=== PATIENT | female | born 1945 | race Caucasian/White ===

== ENCOUNTER 2016-09-04 14:43 | Inpatient (IN) | payer MEDICARE ==
[2016-09-04 14:55] LABS: ABG Draw Site Right Radial; ALLEN'S TEST PASS; BEb 4.4 (+/- 2); TCO2 29.6 MMOL/L (23-27)
[2016-09-04] MEDS ORDERED: SODIUM CHLORIDE 0.9% 3 ML FLUSH FLUSH PRN (15:07)
[2016-09-04] MEDS ORDERED: NS 1,000 ML IV ONE (15:07)
[2016-09-04 15:25] LABS: AUTOMATED BASOPHIL 0.5 % (0-2); AUTOMATED EOSINOPHIL 0.3 % (0-5); AUTOMATED MONOCYTE 3.5 % (3-10); AUTOMATED NEUTROPHIL 90.7 % (45-76); MPV 9.6 fL (7.4-10.4)
--- NOTE | 2016-09-04 15:25 | EDPRACDOC ---
- History of Present Illness HPI: NOTE SEEN AND EXAMINED. I SPOKE WITH FAMILY THAT LIVES ABOVE HER. [place] YESTERDAY. TODAY NOT ACTING RIGHT. MORE LETHARGIC AND CONFUSED. THOUGHT IT WAS 1975 AND RASHAD WAS PRESIDENT. SHE DID NOT KNOW HER AGE. LABS, TRENDS, AND OLD RECORDS REVIEWED. <WillScottie Trevor - Last Filed: 09/04/16 16:18> - General Information Information Source: Family, Thread Pulling Machine Attendant Mode Of Arrival: Ambulance - History of Present Illness Onset: PATIENT FINANCIAL SERVICES SPECIALIST HPI: FAMILY STATES THAT SHE HAS BEEN MORE CONFUSED THAN NORMAL AND SHAKING ALL OVER. PT DENIES PAIN ANYWHERE, NO N/V/D COUGH CONGESTION OR SOB. FAMILY STATES THAT WHEN THEY CHECKED HER OXYGEN AT HOME IT WAS 77% AND THEY DIDNT THINK HER OXYGEN MACHINE WAS WORKING AT HOME. Shortness of Breath: None Relevant History: Reports: COPD, Heart Failure (CHF) Rhinorrhea: Reports: None Ear Symptoms: Reports: None SOB Worsens with: Reports: Nothing SOB Improves with: Reports: Nothing Associated Signs and symptoms: Reports: Other (AMS) <Janel Youssef - Last Filed: 09/04/16 17:39> - General Information Stated Complaint: AMS, RESP PROBLEMS Time Seen by Provider: 09/04/16 14:48 Home Medications: Home Medications Omeprazole [Prilosec] 40 mg PO QAM 12/02/12 Fenofibrate [Lofibra] 108 mg PO BID 07/30/16 Liraglutide [Victoza 18 mg/3 ml Pen] 1.2 mg SQ DAILY@0800 07/30/16 Albuterol/Ipratropium Neb [Duoneb] 3 ml NEB TID #90 nebu 08/04/16 BuPROPion (BID formulation) [Wellbutrin-Sr] 150 mg PO BID #60 tab.sr.12h Furosemide [Lasix] 20 mg PO DAILY #30 tablet 08/04/16 Glipizide [Glucotrol] 10 mg PO BID(SABINO) #60 tablet 08/04/16 Insulin Detemir [Levemir] 30 units SQ HS #5 pen 08/04/16 Levothyroxine Sodium [Synthroid] 50 mcg PO DAILY #30 tablet 08/04/16 Lorazepam [Ativan] 0.5 mg PO TID PRN #30 tablet 08/04/16 Metoprolol Tartrate [Lopressor] 50 mg PO BID #60 tablet 08/04/16 Nebulizer [Erapid Nebulizer] 1 each MC TID #1 each 08/04/16 Pregabalin [Lyrica] 300 mg PO BID #60 capsule 08/04/16 Probiotic Blend [Angela Q] 1 each PO BID #30 tab 08/04/16 Simvastatin [Zocor] 20 mg PO HS #30 tablet 08/04/16 Albuterol Sulfate [Proair Hfa] 2 puff INH Q4-6H PRN 09/04/16 Diphenoxylate HCl/Atropine [Lomotil Tablet (2.5 mg/0.025 mg)] 1 - 2 tab PO QID PRN 09/04/16 Mirtazapine [Remeron] 15 mg PO HS 09/04/16 Sertraline HCl [Zoloft] 50 mg PO HS 09/04/16 Allergies/Adverse Reactions: Allergies Allergy/AdvReac Type Severity Reaction Status Date / Time No Known Allergies Allergy Verified 09/04/16 16:07 - Treatment Prior to ED Arrival Reported Medications/Treatment PATIENT FINANCIAL SERVICES SPECIALIST Meds/Treatments Given O2 via [facility] Treatment ALS IV No Comment capnography 35%, initial pulse ox. 76% on home oxygen 2l/min, cbg 235 <Scottie Solis - Last Filed: 09/04/16 16:18> ED Past Medical History - History Reviewed Yes Nurses notes reviewed and agree except as marked Travel Outside of [place] in the Last 3 Months?: No Information Unobtainable: Yes Unable to obtain information due to patient condition (AMS) - Patient Medical History Cardiac History: Reports: Hypertension, Congestive Heart Failure, Hypercholesterolemia Respiratory History: Reports: COPD, Pneumonia (REPORTED BY MD) GI/ History: Reports: Gastroesophageal Reflux Musculoskeletal History: Reports: Arthritis, Osteoarthritis Psychological History: Reports: Anxiety. Denies: Depression, Substance Use Disorder Systemic History: Reports: Diabetes, Hypothyroidism. Denies: Cancer Surgical History: Reports: Cholecystectomy, Other (Right great toe amputation) - Family Medical History Reports: Hypertension (father, brother), Cancer (sister - uterine), Cardiac Disorders (father, brother) - Social Medical History Smoking Status: Heavy tobacco smoker (5 or more cigarettes/day or daily pipe/ cigar) Social History: Denies: Substance Use Disorder ETOH: None Substance Abuse: None Lives With: Other Lives In: Home <Janel Youssef - Last Filed: 09/04/16 17:39> EDM Review of Systems - Review of Systems ROS Negative Except as Marked: Yes All systems reviewed and were negative except as marked ROS Unobtainable: Yes Review of systems cannot be obtained due to the patient's medical condition (AMS, FAMILY AT BEDSIDE FOR INFO) Constitutional: No Symptoms Reported. negative: Fever, Chills, Weakness, Fatigue, Loss of Appetite Eyes: No Symptoms Reported. negative: Redness, Blurred Vision, Double Vision, Discharge, Pain, Light Sensitive, Photophobia Ears: No Symptoms Reported. negative: Pain, Hearing Loss, Drainage, Ear Pulling Throat: No Symptoms Reported. negative: Pain, Swelling Nose: No Symptoms Reported. negative: Congestion, Bleeding, Discharge, Injection, Swelling, Deformity, Ecchymosis, Tender, Abrasion, Laceration Mouth: No Symptoms Reported. negative: Pain, Drooling Respiratory: No Symptoms Reported. negative: Barky Cough, Brassy Cough, Cough, Hemoptysis, Shortness of Breath, Wheezing Cardiovascular: No Symptoms Reported. negative: Chest Pain, Palpitations, Syncope, Edema, Orthopnea, PND, Skin Mottling, Cyanosis Gastrointestinal: No Symptoms Reported. negative: Pain, Constipation, Nausea, Vomiting, Diarrhea, Melena, Formula Intolerance Genitourinary: No Symptoms Reported. negative: Dysuria, Hematuria, Frequency, Discharge, Bleeding, Testicular Pain, Neurological: Memory Changes, Changes in Orientation. negative: Dizziness, Gait Difficulty, Headache, Numbness, Seizure, Speech Difficulty, Weakness Musculoskeletal: No Symptoms Reported. negative: Neck, Chestwall, Ribs, Back, Shoulder, Arm, Elbow, Forearm, Wrist, Hand, Pelvis, Hip, Femur, Knee, Leg, Ankle , Foot Integumentary: No Symptoms Reported. negative: Itching, Rash, Bruising, Wound Allergic/Immunologic: No Symptoms Reported. negative: Hives, Itching Hematologic: No Symptoms Reported. negative: Lymphadenopathy, Easy Bruising, Easy Bleeding Endocrine: No Symptoms Reported. negative: Weight Gain, Weight Loss Psychiatric: No Symptoms Reported. negative: Anxiety, Depression, Hallucinations, Insomnia, Suicidal <Janel Youssef - Last Filed: 09/04/16 17:39> - Physical Exam Last recorded Vital Signs: Last Vital Signs Temp 98.9 F 09/04/16 14:45 Pulse 64 09/04/16 16:01 Resp 18 09/04/16 16:01 BP 114/57 L 09/04/16 16:01 Pulse Ox 96 09/04/16 16:01 Oxygen Pulse Oxygen Saturation 96 O2 Device Nasal Cannula Oxygen Flow Rate 2 Fraction of Inspired Oxygen ( FIO2) <Scottie Solis - Last Filed: 09/04/16 16:18> - Physical Exam Constitutional: Alert (Awake), Other (AMS) Oriented to: Unable to Test Last recorded Vital Signs: Oxygen Pulse Oxygen Saturation O2 Device Oxygen Flow Rate Fraction of Inspired Oxygen ( FIO2) - HEENT Head: Normal ( normocephalic) Eye Exam: Normal (PERRL, EOMI, Sclera white) Oropharynx: Normal (Pharynx:Moist without exudate,Gums-no swelling) Tympanic Membrane: Normal ENT EAC: Normal TMJ: Normal Nose: No Symptoms Reported (septum midline) Neck: Normal (FROM, trachea at midline) - Respiratory/Cardiovascular Respiratory: Normal - CTA (BBS clear to auscultation without adventitious sounds ) Cardiovascular: Normal (RRR without murmur, gallop or rub) - GI Auscultation: Normal (NABS) Palpation: Normal (Soft,No rebound or guarding, non distended) Tenderness: Non tender Edgar's Sign: Negative - Bladder: Normal - Musculoskeletal Back: Normal (Non-Tender) Extremities: Normal (Normal tone, Pulses 2+ No cyanosis or edema, FROM) - Integumentary Skin: Normal, Warm, Dry Lymphatics: Normal (no adenopathy) - Neurologic Memory Impaired: Unable to Test Motor Function: Unable to Test Cranial Nerve: Unable to Test Cerebellar: Unable to Test Mood Description: Normal Perception: Normal <Janel Youssef - Last Filed: 09/04/16 17:39> ED SOB MDM - Results Result Diagrams: 09/04/16 15:00 09/04/16 15:00 Results: WBC 7.3 xk/uL (3.8-10.8) 09/04/16 15:00 RBC 4.37 xM/uL (4.20-5.40) 09/04/16 15:00 Hgb 13.0 g/dL (12.0-16.0) 09/04/16 15:00 Hct 39.1 % (36-47) 09/04/16 15:00 MCV 89 fL (81-99) 09/04/16 15:00 MCH 29.7 pg (27-32) 09/04/16 15:00 MCHC 33.3 g/dl (33-36) 09/04/16 15:00 RDW 16.6 % (11.5-14.5) H 09/04/16 15:00 Plt Count 170 xk/uL (130-400) 09/04/16 15:00 MPV 9.6 fL (7.4-10.4) 09/04/16 15:00 Neut % (Auto) 90.7 % (45-76) H 09/04/16 15:00 Lymph % (Auto) 5.0 % (17-44) L 09/04/16 15:00 [place] % (Auto) 3.5 % (3-10) 09/04/16 15:00 Eos % (Auto) 0.3 % (0-5) 09/04/16 15:00 Baso % (Auto) 0.5 % (0-2) 09/04/16 15:00 Absolute Neuts (auto) 6.57 xk/uL (1.7-8.2) 09/04/16 15:00 Absolute Lymphs (auto) 0.37 xk/uL (0.65-4.75) L 09/04/16 15:00 PT 11.4 SEC (9.2-11.2) H 09/04/16 15:00 INR 1.1 09/04/16 15:00 APTT 19.7 SEC (22-35) L 09/04/16 15:00 Puncture Site Right radial 09/04/16 14:48 pH 7.470 pH UNITS (7.35-7.45) H 09/04/16 14:48 pCO2 39.0 mmHg (35-45) 09/04/16 14:48 pO2 281.0 mmHg (80-100) H 09/04/16 14:48 HCO3 28.4 MMOL/L (22-26) H 09/04/16 14:48 Total CO2 29.6 MMOL/L (23-27) H 09/04/16 14:48 Base Excess 4.4 (+/- 2) H 09/04/16 14:48 FiO2 % 95% nrb 09/04/16 14:48 Specimen Drawn By Roude 09/04/16 14:48 Sodium 139 mEq/L (137-146) 09/04/16 15:00 Potassium 4.2 mEq/L (3.5-5.1) 09/04/16 15:00 Chloride 96 mEq/L (98-107) L 09/04/16 15:00 Carbon Dioxide 31 mMOL/L (22-33) 09/04/16 15:00 Anion Gap 16 mEq/L (8-16) 09/04/16 15:00 BUN 15 MG/DL (7-17) 09/04/16 15:00 Creatinine 0.90 MG/DL (0.52-1.04) 09/04/16 15:00 Estimated GFR (MDRD) > 60 mL/min (>=60) 09/04/16 15:00 Glucose 202 MG/DL (70-99) H 09/04/16 15:00 Calculated Osmolality 275 MOs/Kg (270-290) 09/04/16 15:00 Calcium 9.4 MG/DL (8.4-10.2) 09/04/16 15:00 Total Bilirubin 1.0 MG/DL (0.2-1.3) 09/04/16 15:00 AST 30 IU/L (14-36) 09/04/16 15:00 ALT 26 IU/L (9-52) 09/04/16 15:00 Alkaline Phosphatase 116 IU/L (55-165) 09/04/16 15:00 Troponin I < 0.01 ng/mL (<.04) 09/04/16 15:00 Usa-R-Tdmssrqvurx Pept 1000 pg/mL (0-900) H 09/04/16 15:00 Total Protein 8.5 G/DL (6.3-8.2) H 09/04/16 15:00 Albumin 4.0 G/DL (3.5-5.0) 09/04/16 15:00 Urine Color Yellow 09/04/16 15:05 Urine Clarity Sl cldy 09/04/16 15:05 Urine pH 8.0 (5.0-8.0) 09/04/16 15:05 Ur Specific [place] 1.015 (1.003-1.035) 09/04/16 15:05 Urine Protein 1+ (NEG/TRACE) H 09/04/16 15:05 Urine Glucose (UA) 2+ (NEGATIVE) H 09/04/16 15:05 Urine Ketones Neg (NEGATIVE) 09/04/16 15:05 Urine Occult Blood Neg (NEG/TRACE) 09/04/16 15:05 Urine Nitrite Neg (NEGATIVE) 09/04/16 15:05 Urine Bilirubin Neg (NEGATIVE) 09/04/16 15:05 Urine Urobilinogen 8 MG/DL (0-1) H 09/04/16 15:05 Ur Leukocyte Esterase Neg (NEGATIVE) 09/04/16 15:05 Urine RBC 0-2 (0-5) 09/04/16 15:05 Urine WBC 20-30 (0-5) H 09/04/16 15:05 Ur Epithelial Cells 2+ 09/04/16 15:05 Urine Bacteria Few (NEG/FEW) 09/04/16 15:05 Urine Mucus Occ (NEG/OCC) 09/04/16 15:05 Lab Results 09/04/16 09/04/16 09/04/16 15:05 15:00 15:00 WBC 7.3 RBC 4.37 Hgb 13.0 Hct 39.1 MCV 89 MCH 29.7 MCHC 33.3 RDW 16.6 H Plt Count 170 MPV 9.6 Neut % (Auto) 90.7 H Lymph % (Auto) 5.0 L [place] % (Auto) 3.5 Eos % (Auto) 0.3 Baso % (Auto) 0.5 Absolute Neuts (auto) 6.57 Absolute Lymphs (auto) 0.37 L PT 11.4 H INR 1.1 APTT 19.7 L Puncture Site pH pCO2 pO2 HCO3 Total CO2 Base Excess FiO2 % Specimen Drawn By Sodium Potassium Chloride Carbon Dioxide Anion Gap BUN Creatinine Estimated GFR (MDRD) Glucose Calculated Osmolality Calcium Total Bilirubin AST ALT Alkaline Phosphatase Troponin I Ceb-I-Vwyanughifk Pept Total Protein Albumin Urine Color Yellow Urine Clarity Sl cldy Urine pH 8.0 Ur Specific [place] 1.015 Urine Protein 1+ H Urine Glucose (UA) 2+ H Urine Ketones Neg Urine Occult Blood Neg Urine Nitrite Neg Urine Bilirubin Neg Urine Urobilinogen 8 H Ur Leukocyte Esterase Neg Urine RBC 0-2 Urine WBC 20-30 H Ur Epithelial Cells 2+ Urine Bacteria Few Urine Mucus Occ 09/04/16 09/04/16 15:00 14:48 WBC RBC Hgb Hct MCV MCH MCHC RDW Plt Count MPV Neut % (Auto) Lymph % (Auto) [place] % (Auto) Eos % (Auto) Baso % (Auto) Absolute Neuts (auto) Absolute Lymphs (auto) PT INR APTT Puncture Site Right radial pH 7.470 H pCO2 39.0 pO2 281.0 H HCO3 28.4 H Total CO2 29.6 H Base Excess 4.4 H FiO2 % 95% nrb Specimen Drawn By Roude Sodium 139 Potassium 4.2 Chloride 96 L Carbon Dioxide 31 Anion Gap 16 BUN 15 Creatinine 0.90 Estimated GFR (MDRD) > 60 Glucose 202 H Calculated Osmolality 275 Calcium 9.4 Total Bilirubin 1.0 AST 30 ALT 26 Alkaline Phosphatase 116 Troponin I < 0.01 Cet-K-Ndbxkxahlvw Pept 1000 H Total Protein 8.5 H Albumin 4.0 Urine Color Urine Clarity Urine pH Ur Specific [place] Urine Protein Urine Glucose (UA) Urine Ketones Urine Occult Blood Urine Nitrite Urine Bilirubin Urine Urobilinogen Ur Leukocyte Esterase Urine RBC Urine WBC Ur Epithelial Cells Urine Bacteria Urine Mucus <Scottie Solis - Last Filed: 09/04/16 16:18> - Differential Diagnosis Differential Diagnosis: Heart Failure, Pnuemonia, Other (UTI) - Results Result Diagrams: 09/04/16 15:00 09/04/16 15:00 Results: Puncture Site Right radial 09/04/16 14:48 pH 7.470 pH UNITS (7.35-7.45) H 09/04/16 14:48 pCO2 39.0 mmHg (35-45) 09/04/16 14:48 pO2 281.0 mmHg (80-100) H 09/04/16 14:48 HCO3 28.4 MMOL/L (22-26) H 09/04/16 14:48 Total CO2 29.6 MMOL/L (23-27) H 09/04/16 14:48 Base Excess 4.4 (+/- 2) H 09/04/16 14:48 FiO2 % 95% nrb 09/04/16 14:48 Specimen Drawn By Roude 09/04/16 14:48 Lab Results 09/04/16 14:48 Puncture Site Right radial pH 7.470 H pCO2 39.0 pO2 281.0 H HCO3 28.4 H Total CO2 29.6 H Base Excess 4.4 H FiO2 % 95% nrb Specimen Drawn By Roude - EKG EKG #1 EKG Time: 14:51 -: Yes EKG interpreted by me Rate: bpm: 70 [place]: LAD Rhythm: NSR, PVCs Block: LBBB Hypertrophy: None ST: Normal - Diagnostic Imaging CT HD Image interpreted by: Radiologist Diagnostic Imaging Comments: IMPRESSION: 1. Atrophy. 2. No evidence for acute intracranial abnormality CXR Image interpreted by: Radiologist Diagnostic Imaging Comments: IMPRESSION: No active disease <Janel Youssef - Last Filed: 09/04/16 17:39> <Scottie Solis - Last Filed: 09/04/16 16:18> - Departure Disposition: Admit IP To This Hospital Education/Counseling Given To: Patient Education/Counseling Given Regarding: Diagnosis, Treatment, Prognosis, Follow Up Decision to Admit Time: 16:22 Decision to admit date: 09/04/16 Decision to admit: from ED - Physician Consulted Hospitalist Time Called: 16:22 Provider Called: Melchor Anderson <Janel Youssef - Last Filed: 09/04/16 17:39> - Departure Condition: Stable Final Diagnosis: Altered mental status UTI (urinary tract infection) Qualifiers: Urinary tract infection type: acute cystitis Hematuria presence: without hematuria Qualified Code(s): N30.00 - Acute cystitis without hematuria Instructions: Urinary Tract Infection in Women (ED), Dysuria, Acute Delirium ( ED) Referrals: None,No Provider [Primary Care Provider] - One Week
[2016-09-04 15:36] LABS: BLOOD UREA NITROGEN 15 MG/DL (7-17); CALCIUM 9.4 MG/DL (8.4-10.2); CALCULATED OSMOLALITY 275 MOs/Kg (270-290); CHLORIDE 96 mEq/L (98-107); GLUCOSE 202 MG/DL (70-99); SODIUM LEVEL 139 mEq/L (137-146); TOTAL PROTEIN 8.5 G/DL (6.3-8.2)
[2016-09-04 15:39] LABS: LEUKOCYTES/URINE NEG (NEGATIVE); NITRITE/URINE NEG (NEGATIVE); RBC/URINE 0-2 (0-5); URINE OCCULT BLOOD NEG (NEG/TRACE); WBC/URINE 20-30 (0-5)
[2016-09-04 15:46] LABS: PARTIAL THROMB. TIME 19.7 SEC (22-35); PT-INR 1.1
--- NOTE | 2016-09-04 16:01 | DIRPT ---
CLINICAL DATA: Altered mental status. EXAM: CT HEAD WITHOUT CONTRAST TECHNIQUE: Contiguous axial images were obtained from the base of the skull through the vertex without intravenous contrast. COMPARISON: 11/16/2012 FINDINGS: Study quality is degraded by patient motion. There is mild central and cortical atrophy. There is no intra or extra-axial fluid collection or mass lesion. The basilar cisterns and ventricles have a normal appearance. There is no CT evidence for acute infarction or hemorrhage. No acute calvarial fracture. Visualized paranasal and mastoid air cells are normally aerated. There is atherosclerotic calcification of the internal carotid arteries. IMPRESSION: 1. Atrophy. 2. No evidence for acute intracranial abnormality. Electronically Signed By: Latasha Lama M.D. On: 09/04/2016 15:58
--- NOTE | 2016-09-04 16:08 | DIRPT ---
CLINICAL DATA: 71-year-old female with shortness of breath and altered mental status. EXAM: PORTABLE CHEST 1 VIEW COMPARISON: 01/30/2014 and prior chest radiographs FINDINGS: The patient is rotated. There is no evidence of focal airspace disease, pulmonary edema, suspicious pulmonary nodule/mass, pleural effusion, or pneumothorax. No acute bony abnormalities are identified. The cardiomediastinal silhouette is unremarkable. IMPRESSION: No active disease. Electronically Signed By: Mau Bajwa M.D. On: 09/04/2016 16:06
[2016-09-04] MEDS ORDERED: CEFTRIAXONE 2 GM in D5W 100 ML IV ONE (16:21)
--- NOTE | 2016-09-04 17:16 | HISTPHYS ---
- History of Present Illness FAMILY STATES THAT SHE HAS BEEN MORE CONFUSED THAN NORMAL AND SHAKING ALL OVER. PT DENIES PAIN ANYWHERE, NO N/V/D COUGH CONGESTION OR SOB. FAMILY STATES THAT WHEN THEY CHECKED HER OXYGEN AT HOME IT WAS 77% AND THEY DIDNT THINK HER OXYGEN MACHINE WAS WORKING AT HOME. Shortness of Breath: None Relevant History: Reports: COPD, Heart Failure (CHF) Rhinorrhea: Reports: None Ear Symptoms: Reports: None SOB Worsens with: Reports: Nothing SOB Improves with: Reports: Nothing Associated Signs and symptoms: Reports: Other (AMS) - Medical History Cardiac History: Reports: Hypertension, Congestive Heart Failure, Hypercholesterolemia Respiratory History: Reports: COPD, Pneumonia (REPORTED BY MD) GI/ History: Reports: Gastroesophageal Reflux Musculoskeletal History: Reports: Arthritis, Osteoarthritis Systemic History: Reports: Diabetes, Hypothyroidism. Denies: Cancer Psychological History: Reports: Anxiety. Denies: Depression, Substance Use Disorder - Surgical History Reports: Cholecystectomy, Other (Right great toe amputation) - Medictions/Allergies Allergies No Known Allergies Allergy (Verified 09/04/16 16:07) Home Medications Omeprazole [Prilosec] 40 mg PO QAM 12/02/12 Fenofibrate [Lofibra] 108 mg PO BID 07/30/16 Liraglutide [Victoza 18 mg/3 ml Pen] 1.2 mg SQ DAILY@0800 07/30/16 Albuterol/Ipratropium Neb [Duoneb] 3 ml NEB TID #90 nebu 08/04/16 BuPROPion (BID formulation) [Wellbutrin-Sr] 150 mg PO BID #60 tab.sr.12h Furosemide [Lasix] 20 mg PO DAILY #30 tablet 08/04/16 Glipizide [Glucotrol] 10 mg PO BID(SABINO) #60 tablet 08/04/16 Insulin Detemir [Levemir] 30 units SQ HS #5 pen 08/04/16 Levothyroxine Sodium [Synthroid] 50 mcg PO DAILY #30 tablet 08/04/16 Lorazepam [Ativan] 0.5 mg PO TID PRN #30 tablet 08/04/16 Metoprolol Tartrate [Lopressor] 50 mg PO BID #60 tablet 08/04/16 Nebulizer [Erapid Nebulizer] 1 each MC TID #1 each 11/30/16 Pregabalin [Lyrica] 300 mg PO BID #60 capsule 08/04/16 Probiotic Blend [Angela Q] 1 each PO BID #30 tab 08/04/16 Simvastatin [Zocor] 20 mg PO HS #30 tablet 08/04/16 Albuterol Sulfate [Proair Hfa] 2 puff INH Q4-6H PRN 09/04/16 Diphenoxylate HCl/Atropine [Lomotil Tablet (2.5 mg/0.025 mg)] 1 - 2 tab PO QID PRN 09/04/16 Mirtazapine [Remeron] 15 mg PO HS 09/04/16 Sertraline HCl [Zoloft] 50 mg PO HS 09/04/16 - Family History Reports: Hypertension (father, brother), Cancer (sister - uterine), Cardiac Disorders (father, brother) - Social History Smoking Status: Heavy tobacco smoker (5 or more cigarettes/day or daily pipe/ cigar) Social History: Denies: Substance Use Disorder - Review of Systems Constitutional: No Symptoms Reported. negative: Fever, Chills, Weakness, Fatigue, Loss of Appetite - Physical Exam Constitutional: Alert (Awake), Other (AMS) Oriented to: Unable to Test Exam: Last Vital Signs Temp 98.9 F 09/04/16 14:45 Pulse 64 09/04/16 16:01 Resp 18 09/04/16 16:01 BP 114/57 L 09/04/16 16:01 Pulse Ox 96 09/04/16 16:01 Intake & Output 09/04/16 09/04/16 09/04/16 07:59 15:59 23:59 Patient's weight 183 lb 8 oz - HEENT Head: Normal ( normocephalic) Eye: Normal (PERRL, EOMI, Sclera white) Oropharynx: Normal (Pharynx:Moist without exudate,Gums-no swelling) Tympanic Membrane: Normal ENT EAC: Normal TMJ: Normal Nose: No Symptoms Reported (septum midline) - Respiratory/Cardiovascular Respiratory: Normal - CTA (BBS clear to auscultation without adventitious sounds ) - GI Auscultation: Normal (NABS) Palpation: Normal (Soft,No rebound or guarding, non distended) Tenderness: Non tender - Musculoskeletal Back: Normal (Non-Tender) Extremities: Normal (Normal tone, Pulses 2+ No cyanosis or edema, FROM) - Integumentary Skin: Normal, Warm, Dry Lymphatics: Normal (no adenopathy) - Neurologic Memory Impaired: Unable to Test Cerebellar: Unable to Test Mood Description: Normal Perception: Normal - Focused CV Perfusion Exam Vital Signs: Last Vital Signs Temp 98.9 F 09/04/16 14:45 Pulse 64 09/04/16 16:01 Resp 18 09/04/16 16:01 BP 114/57 L 09/04/16 16:01 Pulse Ox 96 09/04/16 16:01 - Lab Results 09/04/16 15:00 09/04/16 15:00 Laboratory Tests 09/04/16 09/04/16 14:48 15:00 INR 1.1 pH 7.470 H pCO2 39.0 pO2 281.0 H HCO3 28.4 H Total CO2 29.6 H Base Excess 4.4 H FiO2 % 95% nrb Laboratory Tests 09/04/16 09/04/16 15:00 15:05 Arr-T-Xyuulxykthz Pept 1000 H Urine Nitrite Neg Ur Leukocyte Esterase Neg Urine WBC 20-30 H PORTABLE CHEST 1 V[address] No active disease. CT HEAD WITHOUT CONTRAST 1. Atrophy. 2. No evidence for acute intracranial abnormality. - Assessment (1) COPD exacerbation J44.1 - CHRONIC OBSTRUCTIVE PULMONARY DISEASE W (ACUTE) EXACERBATION Acute (2) Hypertension I10 - ESSENTIAL (PRIMARY) HYPERTENSION Acute (3) CHF (congestive heart failure) I50.9 - HEART FAILURE, UNSPECIFIED Acute (4) Diabetes mellitus type 2 in obese E11.9 - TYPE 2 DIABETES MELLITUS WITHOUT COMPLICATIONS; E66.9 - OBESITY, UNSPECIFIED Acute (5) Chronic anxiety F41.9 - ANXIETY DISORDER, UNSPECIFIED Acute - Plan 60 Case Care Discussed with: Patient Code: [id number]
[2016-09-04] MEDS ORDERED: DEXTROSE 25 GM/50 ML PFS IV PRN (17:38)
[2016-09-04] MEDS ORDERED: ALBUTEROL 0.083% 3 ML NEB NEB PRN (17:38)
[2016-09-04] MEDS ORDERED: GLUCAGON 1 MG VIAL SQ PRN (17:38)
[2016-09-04] MEDS ORDERED: GLUCOSE (ORAL GEL) 15 GM TUBE PO PRN (17:38)
[2016-09-04 17:53] LABS: ALL NEG? YES; MDMA* NEG (NEGATIVE); METHAMPHETAMINES NEG (NEGATIVE); OXYCODONE NEG (NEGATIVE)
[2016-09-04] MEDS: Albuterol/Ipratropium Neb 3 ML NEB NEB SCH (19:01)
[2016-09-04] MEDS: NS/KCl 20 mEq 1,000 ML IV SCH (19:33)
[2016-09-04] MEDS: ENOXAPARIN 40 MG/0.4 ML PFS SQ SCH (19:34)
[2016-09-04] MEDS: SODIUM CHLORIDE 0.9% 3 ML FLUSH FLUSH SCH (19:34)
[2016-09-04] MEDS: REGULAR INSULIN 100 UNITS/ML - 3 ML VIAL SQ SCH (21:48)
[2016-09-04] MEDS ORDERED: Vaccine Screening Complete SCH (23:00)
[2016-09-05] MEDS: Albuterol/Ipratropium Neb 3 ML NEB NEB SCH ×4 (00:35→19:07)
[2016-09-05 04:08] LABS: MPV 10.2 fL (7.4-10.4)
[2016-09-05 04:31] LABS: ABG Draw Site Right Radial; ABG Draw Tech BKL; ALLEN'S TEST PASS; TCO2 30.3 MMOL/L (23-27)
[2016-09-05] MEDS: SODIUM CHLORIDE 0.9% 3 ML FLUSH FLUSH SCH (05:14)
[2016-09-05] MEDS: REGULAR INSULIN 100 UNITS/ML - 3 ML VIAL SQ SCH ×4 (05:14→20:43)
[2016-09-05] MEDS: NS/KCl 20 mEq 1,000 ML IV SCH ×4 (06:04→23:08)
--- NOTE | 2016-09-05 10:15 | GENMEDPROG ---
Chief Complaint: Weakness, confusion and hypoxia Subjective Note: Patient resting comfortably in a chair at the bedside this morning. She has no acute complaints. She denies to me that she is supposed to be wearing chronic oxygen at home. Notes Reviewed: Yes Events from last night noted and discussed with Clinical Staff Current Medication List: Reviewed Currently: Denies: Cough, Wheezing, Abdominal Pain, Fever/Chills, Chest Pain DVT Prophylaxis: Yes - Physical Examination Vital Signs and I&O: Last Vital Signs Temp 98.8 F 09/05/16 07:15 Pulse 70 09/05/16 09:30 Resp 18 09/05/16 07:15 BP 109/48 L 09/05/16 07:15 Pulse Ox 93 09/05/16 08:00 Oxygen Pulse Oxygen Saturation 93 O2 Device Nasal Cannula Oxygen Flow Rate 2 Fraction of Inspired Oxygen ( FIO2) Intake & Output 09/03/16 09/04/16 09/05/16 09/06/16 06:59 06:59 06:59 06:59 Intake Total 1092 1157 Output Total 400 Balance 1092 757 Patient's weight 79.832 kg General: Alert, Cooperative, No acute distress HEENT: EOMI (Sclera white) Neck: Normal Trachea alignment, Normal inspection Lymphatics: Normal (no adenopathy) Respiratory: Normal - CTA (BBS clear to auscultation without adventitious sounds ) Cardiovascular: Regular rate, No Gallops,Rubs/Murmurs Extremities/Musculoskeletal: Other (Normal Tone). negative: Edema, Cyanosis Lab/DI/Studies Reviewed: Laboratory Tests 09/05/16 09/05/16 03:15 04:25 WBC 5.3 Hgb 12.0 pH 7.470 H pCO2 40.0 pO2 68.0 L - Assessment (1) COPD (chronic obstructive pulmonary disease) Acute J44.9 - CHRONIC OBSTRUCTIVE PULMONARY DISEASE, UNSPECIFIED Comment/ Plan: She has COPD, no signs of acute exacerbation. Reportedly on 2 L nasal cannula oxygen continuously at home. She was found at home without this oxygen , was confused and hypoxic. She is much better this morning. (2) Altered mental status Acute R41.82 - ALTERED MENTAL STATUS, UNSPECIFIED Comment/Plan: Likely due to hypoxia from not wearing her supplemental oxygen. (3) CHF (congestive heart failure) Acute I50.9 - HEART FAILURE, UNSPECIFIED (4) Diabetes mellitus type 2 in obese Acute E11.9 - TYPE 2 DIABETES MELLITUS WITHOUT COMPLICATIONS; E66.9 - OBESITY , UNSPECIFIED (5) Hypertension Acute I10 - ESSENTIAL (PRIMARY) HYPERTENSION - Plan Patient is doing well, asymptomatic this morning. She is at her baseline, at least medically. She is seems to slightly still be confused and I am not sure if this is her baseline or not. Regardless, the patient was seen by physical therapy this morning and they recommend subacute nursing facility placement. Will discuss with nursing and social work staff.
[2016-09-05] MEDS ORDERED: Magnesium Sulfate 2 gm/D5W 2 GM/50 ML RTU IV ONE (15:00)
[2016-09-05] MEDS ORDERED: LOMOTIL 2.5 MG PO PRN (15:30)
[2016-09-05] MEDS ORDERED: INSULIN DETEMIR 100 UNITS/ML PEN SQ SCH ×2 (16:00→21:00)
[2016-09-05] MEDS: GLIPIZIDE 10 MG TAB PO SCH (17:05)
[2016-09-05] MEDS: ENOXAPARIN 40 MG/0.4 ML PFS SQ SCH (17:05)
[2016-09-05] MEDS: PREGABALIN 100 MG CAP PO SCH (20:35)
[2016-09-05] MEDS: BuPROPion 150 MG SR TAB PO SCH (20:37)
[2016-09-05] MEDS: PROBIOTIC BLEND TAB PO SCH (20:37)
[2016-09-05] MEDS: METOPROLOL TARTRATE 50 MG TAB PO SCH (20:37)
[2016-09-05] MEDS ORDERED: BENZONATATE 100 MG PERLES PO PRN (20:49)
[2016-09-05] MEDS ORDERED: ACETAMINOPHEN 325 MG SUPP PR PRN (20:49)
[2016-09-05] MEDS ORDERED: TEMAZEPAM 15 MG CAP PO PRN (20:49)
[2016-09-05] MEDS ORDERED: Aluminum;Magnesium;Simethicone 30 ML UDC PO PRN (20:49)
[2016-09-05] MEDS ORDERED: ONDANSETRON HCL 4 MG/2 ML VIAL IV PRN (20:49)
[2016-09-05] MEDS ORDERED: BISACODYL 5 MG TAB PO PRN (20:49)
[2016-09-05] MEDS ORDERED: PROMETHAZINE 25 MG/ML VIAL IV PRN (20:49)
[2016-09-05] MEDS ORDERED: ACETAMINOPHEN 325 MG/TAB TABLET PO PRN (20:49)
[2016-09-05] MEDS ORDERED: GUAIFEN 100 MG-DEXTROMETH 10 MG PER 5 ML PO PRN (20:49)
[2016-09-05] MEDS ORDERED: SENNA CONCENTRATE TAB PO PRN (20:49)
[2016-09-05] MEDS ORDERED: FENOFIBRATE PO SCH (21:00)
[2016-09-05] MEDS ORDERED: SERTRALINE HCL 50 MG TAB PO SCH (21:00)
[2016-09-05] MEDS ORDERED: SIMVASTATIN 20 MG TAB PO SCH (21:00)
[2016-09-05] MEDS ORDERED: CEFTRIAXONE 1 GM in D5W 100 ML IV SCH (21:00)
[2016-09-05] MEDS ORDERED: PREGABALIN 300 MG PO SCH (21:00)
[2016-09-05] MEDS ORDERED: MIRTAZAPINE 15 MG TAB PO SCH (21:00)
--- NOTE | 2016-09-05 21:32 | DIRPT ---
CLINICAL DATA: Acute onset of fever and dyspnea. Initial encounter. EXAM: PORTABLE CHEST 1 VIEW COMPARISON: Chest radiograph performed 09/04/2016 FINDINGS: The lungs are well-aerated. Hazy density at the right hemithorax and right central opacity may reflect mild asymmetric interstitial edema or possibly pneumonia. The left lung appears relatively clear. No pleural effusion or pneumothorax is seen. The cardiomediastinal silhouette is borderline normal in size. No acute osseous abnormalities are identified. IMPRESSION: Hazy density at the right hemithorax and right central opacity may reflect mild asymmetric interstitial edema or possibly pneumonia, mostly new from the prior study. Electronically Signed By: Satnam Glaser M.D. On: 09/05/2016 21:30
[2016-09-05] MEDS ORDERED: AZITHROMYCIN 500 MG in D5W 250 ML IV SCH (22:00)
[2016-09-05] MEDS ORDERED: NYSTATIN CREAM 15 GM TUBE TOP SCH (23:00)
[2016-09-06] MEDS ORDERED: Fluconazole 400 mg in NS 400 MG/200 ML RTU IV SCH
[2016-09-06] MEDS: NYSTATIN CREAM 15 GM TUBE TOP SCH ×2 (00:11→07:13)
[2016-09-06] MEDS: Albuterol/Ipratropium Neb 3 ML NEB NEB SCH ×3 (00:50→13:26)
[2016-09-06 03:45] LABS: MPV 9.9 fL (7.4-10.4)
[2016-09-06 03:50] LABS: BLOOD UREA NITROGEN 17 MG/DL (7-17); CALCULATED OSMOLALITY 274 MOs/Kg (270-290); CHLORIDE 103 mEq/L (98-107); GLUCOSE 199 MG/DL (70-99); SODIUM LEVEL 138 mEq/L (137-146)
[2016-09-06 04:15] VITALS: BMI 31.6
[2016-09-06] MEDS ORDERED: PANTOPRAZOLE 40 MG TAB PO SCH (06:00)
[2016-09-06] MEDS ORDERED: LEVOTHYROXINE 50 MCG (0.05 MG) TAB PO SCH (06:00)
[2016-09-06] MEDS ORDERED: LEVOTHYROXINE 25 MCG (0.025 MG) TAB PO SCH (06:00)
[2016-09-06] MEDS: REGULAR INSULIN 100 UNITS/ML - 3 ML VIAL SQ SCH ×2 (06:58→11:29)
[2016-09-06] MEDS: GLIPIZIDE 10 MG TAB PO SCH (07:00)
[2016-09-06 07:26] VITALS: TEMP 98.9
[2016-09-06] MEDS: PROBIOTIC BLEND TAB PO SCH (07:48)
[2016-09-06] MEDS: METOPROLOL TARTRATE 50 MG TAB PO SCH (07:48)
[2016-09-06] MEDS: BuPROPion 150 MG SR TAB PO SCH (07:49)
[2016-09-06] MEDS: PREGABALIN 100 MG CAP PO SCH (07:52)
[2016-09-06] MEDS ORDERED: FENOFIBRATE 48 MG TAB PO SCH (08:00)
[2016-09-06] MEDS: NS/KCl 20 mEq 1,000 ML IV SCH (08:17)
[2016-09-06] MEDS ORDERED: FUROSEMIDE 20 MG TAB PO SCH (09:00)
[2016-09-06] MEDS ORDERED: Non-Formulary Medication ITEM (Omeprazole [Prilosec] 40 MG) PO SCH (09:00)
--- NOTE | 2016-09-06 09:39 | PCM.DCS92 ---
- Final/Secondary Discharge Diagnosis (1) Altered mental status Acute R41.82 - ALTERED MENTAL STATUS, UNSPECIFIED Comment: Likely due to hypoxia from not wearing her supplemental oxygen. Plan/Goal/Comment: Patient continues to report that she does not need home oxygen at home. Will recheck her prior to discharge to confirm (2) CHF (congestive heart failure) Acute I50.9 - HEART FAILURE, UNSPECIFIED Present on Admission: Yes diastolic acute I50.31 - Acute diastolic (congestive) heart failure Plan/Goal/Comment: Continue current medication plan (3) COPD (chronic obstructive pulmonary disease) Acute J44.9 - CHRONIC OBSTRUCTIVE PULMONARY DISEASE, UNSPECIFIED Present on Admission: Yes chronic bronchitis simple J41.0 - Simple chronic bronchitis Comment: She has COPD, no signs of acute exacerbation. Reportedly on 2 L nasal cannula oxygen continuously at home. She was found at home without this oxygen , was confused and hypoxic. She is much better this morning. (4) Diabetes mellitus type 2 in obese Acute E11.9 - TYPE 2 DIABETES MELLITUS WITHOUT COMPLICATIONS; E66.9 - OBESITY , UNSPECIFIED Present on Admission: Yes (5) Hypertension Acute I10 - ESSENTIAL (PRIMARY) HYPERTENSION Present on Admission: Yes (6) UTI (urinary tract infection) Acute N39.0 - URINARY TRACT INFECTION, SITE NOT SPECIFIED Present on Admission: Yes acute cystitis without hematuria N30.00 - Acute cystitis without hematuria Plan/Goal/Comment: Due to Proteus urinary tract infection. (7) Proteus mirabilis infection Acute B96.4 - PROTEUS (MIRABILIS) (MORGANII) CAUSING DIS CLASSD ELSWHR Present on Admission: Yes Plan/Goal/Comment: Urine cultures positive for Proteus which is sensitive to antibiotics patient will receive at home. Discharge Disposition: Discharge w/ Home Health (Patient has refused alf facility placement needs RN and PT) Discharge Condition: Stable Cognitive Discharge Status: Cognitive deficits prevent decision making for safety. Fuctional Discharge Status: Walker Assistance (Apparently patient refuses to use her walker), Deconditioning, Ambulatory Dysfunction Physician Follow up/Referrals: Rosaura Braswell MD [NonStaff] - One Week New Prescriptions: Cefuroxime [Ceftin] 250 mg PO BID #10 tablet Fluconazole [Diflucan] 100 mg PO DAILY(SABINO) #5 tablet Insulin Detemir [Levemir] 30 units SQ HS #5 pen Nystatin [Mycostatin] 15 gm TOP TID #1 tube Levothyroxine [Synthroid, Levoxyl] 50 mcg PO 0600 #30 tablet Azithromycin [Zithromax] 1 tab PO DAILY #5 tab Discharge Home Medication List Omeprazole [Prilosec] 40 mg PO QAM 12/02/12 [History Confirmed 09/04/16] Fenofibrate [Lofibra] 108 mg PO BID 07/30/16 [History Confirmed 09/04/16] Liraglutide [Victoza 18 mg/3 ml Pen] 1.2 mg SQ DAILY@0800 07/30/16 [History Confirmed 09/04/16] Albuterol/Ipratropium Neb [Duoneb] 3 ml NEB TID #90 nebu 08/04/16 [Rx Confirmed 09/04/16] BuPROPion (BID formulation) [Wellbutrin-Sr] 150 mg PO BID #60 tab.sr.12h [Rx Confirmed 09/04/16] Furosemide [Lasix] 20 mg PO DAILY #30 tablet 08/04/16 [Rx Confirmed 09/04/16] Glipizide [Glucotrol] 10 mg PO BID(SABINO) #60 tablet 08/04/16 [Rx Confirmed ] Lorazepam [Ativan] 0.5 mg PO TID PRN #30 tablet 08/04/16 [Rx Confirmed 09/04/16] Metoprolol Tartrate [Lopressor] 50 mg PO BID #60 tablet 08/04/16 [Rx Confirmed 09/04/16] Nebulizer [Erapid Nebulizer] 1 each MC TID #1 each 08/04/16 [Rx Confirmed ] Pregabalin [Lyrica] 300 mg PO BID #60 capsule 08/04/16 [Rx Confirmed 09/04/16] Probiotic Blend [Angela Q] 1 each PO BID #30 tab 08/04/16 [Rx Confirmed 09/04/16] Simvastatin [Zocor] 20 mg PO HS #30 tablet 08/04/16 [Rx Confirmed 09/04/16] Albuterol Sulfate [Proair Hfa] 2 puff INH Q4-6H PRN 09/04/16 [History Confirmed 09/04/16] Diphenoxylate HCl/Atropine [Lomotil Tablet (2.5 mg/0.025 mg)] 1 - 2 tab PO QID PRN 09/04/16 [History Confirmed 09/04/16] Mirtazapine [Remeron] 15 mg PO HS 09/04/16 [History Confirmed 09/04/16] Sertraline HCl [Zoloft] 50 mg PO HS 09/04/16 [History Confirmed 09/04/16] Azithromycin [Zithromax] 1 tab PO DAILY #5 tab 09/06/16 [Rx] Cefuroxime [Ceftin] 250 mg PO BID #10 tablet 09/06/16 [Rx] Fluconazole [Diflucan] 100 mg PO DAILY(SABINO) #5 tablet 09/06/16 [Rx] Insulin Detemir [Levemir] 30 units SQ HS #5 pen 09/06/16 [Rx] Levothyroxine [Synthroid, Levoxyl] 50 mcg PO 0600 #30 tablet 09/06/16 [Rx] Nystatin [Mycostatin] 15 gm TOP TID #1 tube 09/06/16 [Rx] New Discharge Medications (Rx) Azithromycin [Zithromax] 1 tab PO DAILY #5 tab 09/06/16 [Rx] Cefuroxime [Ceftin] 250 mg PO BID #10 tablet 09/06/16 [Rx] Fluconazole [Diflucan] 100 mg PO DAILY(SABINO) #5 tablet 09/06/16 [Rx] Insulin Detemir [Levemir] 30 units SQ HS #5 pen 09/06/16 [Rx] Levothyroxine [Synthroid, Levoxyl] 50 mcg PO 0600 #30 tablet 09/06/16 [Rx] Nystatin [Mycostatin] 15 gm TOP TID #1 tube 09/06/16 [Rx] O2 Device: Nasal Cannula Oxygen Flow Rate: 2 Oxygen to be used after Discharge: While Ambulating, At Night or During Sleep Additional Instructions: Patient seems to think she does not require home oxygen at all of our records and information provided admissions suggests that she does. Family states that she refuses to wear it. Will test O2 ambulating sats prior to discharge to determine need for oxygen. Please note that this morning at rest the patient dropped to 88% on room air. Diet at Discharge: Diabetic, 1800 Calorie Call Office For: Worsening Symptoms, Fever over 100.5, Pain Uncontrolled By Meds Discontinue use of:: All Types of Tobacco - DC Summary Notes Hospital Course Note:: Discharge summary on patient named GRICELDA DE LEON admitted to [facility] on 09/04/16 by Vinh Muniz MD. Date of discharge is Pleasant 71-year-old female admitted for to our facility with confusion hypoxemia and found to have pneumonia. She has a long smoking history. According to records on admission patient refuses to acknowledge that she is supposed to wear oxygen at home. Confused about the details of this but regardless of this at rest today on room air her sats dropped to 88%. Will check ambulating O2 sats on room air today prior to discharge. Patient will likely require 2 L of home oxygen will try to arrange that for her. With regards to her pneumonia patient has slowly improved. At this point she has reached maximal benefit of hospitalization is stable for discharge home. Medical team conference was held on the patient discussion of diagnosis treatments plans and prognosis as well as disposition. In addition to myself the following team members were present nursing, physical therapy, speech therapy, occupational therapy, case management, social work, nutrition, mixing machine attendant , palliative care, and home health nursing. Input from each discipline was recieved and is incorporated in the plan of care in the medical record as well as in the plans in the progress notes.. Total Time: 55 minutes Code: 83568 (>30min.) - Physical Exam Vital Signs: Last Vital Signs Temp 98.9 F 09/06/16 07:25 Pulse 53 L 09/06/16 07:25 Resp 18 09/06/16 07:25 BP 102/53 L 09/06/16 07:25 Pulse Ox 94 09/06/16 08:10 Oxygen Pulse Oxygen Saturation 94 O2 Device Nasal Cannula Oxygen Flow Rate 2 Fraction of Inspired Oxygen ( FIO2) Constitutional: Alert (Awake), Other (Confuse regarding details of her care at home) Oriented to: Unable to Test - HEENT Head: Normal ( normocephalic) Eye: Normal (PERRL, EOMI, Sclera white) Oropharynx: Normal (Pharynx:Moist without exudate,Gums-no swelling) Tympanic Membrane: Normal ENT EAC: Normal TMJ: Normal Nose: No Symptoms Reported (septum midline) - Respiratory/Cardiovascular Respiratory: Accessory Muscle Use. negative: Rales, Rhonchi, Tachypnea, Wheezes Cardiovascular: Normal (RRR , Normal S1, S2. No murmurs, rubs, or gallops. PMI non-displaced. Carotids: no carotid bruits. No bradycardia or tachycardia. DP pulses 2+ bilaterally.) - GI Auscultation: Normal (NABS) Palpation: Normal (Soft,No rebound or guarding, non distended) Tenderness: Non tender Edgar's Sign: Negative - Musculoskeletal Back: Normal (Non-Tender) Extremities: Normal (Normal tone, Pulses 2+ No cyanosis or edema, FROM) - Integumentary Skin: Normal (Warm dry no rashes) Lymphatics: Normal (no adenopathy) - Neurologic Memory Impaired: Unable to Test Motor Function: Unable to Test Cranial Nerve: Unable to Test Cerebellar: Unable to Test Mood Description: Normal Perception: Normal - Other Exam Other Exam Findings: Laboratory Results - last 24 hr 09/05/16 09/05/16 09/05/16 03:15 11:20 16:31 WBC RBC Hgb Hct MCV MCH MCHC RDW Plt Count MPV Sodium Potassium Chloride Carbon Dioxide Anion Gap BUN Creatinine Estimated GFR (MDRD) Glucose POC Capillary Glucose 183 H 139 H Calculated Osmolality Lactic Acid Calcium Magnesium 1.50 L 09/05/16 09/05/16 09/06/16 20:35 21:15 02:30 WBC RBC Hgb Hct MCV MCH MCHC RDW Plt Count MPV Sodium 138 Potassium 3.8 Chloride 103 Carbon Dioxide 27 Anion Gap 12 BUN 17 Creatinine 0.90 Estimated GFR (MDRD) > 60 Glucose 199 H POC Capillary Glucose 243 H Calculated Osmolality 274 Lactic Acid 2.1 Calcium 8.0 L Magnesium 09/06/16 09/06/16 02:30 04:17 WBC 3.9 RBC 3.52 L Hgb 10.5 L D Hct 31.9 L MCV 91 MCH 29.7 MCHC 32.8 L RDW 16.8 H Plt Count 122 L MPV 9.9 Sodium Potassium Chloride Carbon Dioxide Anion Gap BUN Creatinine Estimated GFR (MDRD) Glucose POC Capillary Glucose 186 H Calculated Osmolality Lactic Acid Calcium Magnesium PORTABLE CHEST 1 VIEW COMPARISON: Chest radiograph performed 09/04/2016 FINDINGS: The lungs are well-aerated. Hazy density at the right hemithorax and right central opacity may reflect mild asymmetric interstitial edema or possibly pneumonia. The left lung appears relatively clear. No pleural effusion or pneumothorax is seen. The cardiomediastinal silhouette is borderline normal in size. No acute osseous abnormalities are identified. IMPRESSION: Hazy density at the right hemithorax and right central opacity may reflect mild asymmetric interstitial edema or possibly pneumonia, mostly new from the prior study. Electronically Signed By: Satnam Glaser M.D. On: 09/05/2016 21:30
[2016-09-06 10:19] VITALS: PULSE 61
[2016-09-06 12:13] VITALS: BP 106/62
[2016-09-07] MEDS ORDERED: LEVOTHYROXINE 25 MCG (0.025 MG) TAB PO SCH (06:00)
[2016-09-07] MEDS ORDERED: LEVOTHYROXINE 50 MCG (0.05 MG) TAB PO SCH (06:00)
== END 2016-09-06 14:18 | disposition home health service (06) | DRG 190 ==
LOC: ED 14:43 → PCU 17:49
PROVIDERS: ADMIT Hospitalist; ATTEND Hospitalist
PROC: 039B3ZZ Drainage of Right Radial Artery, Percutaneous Approach (ICD-10-PCS; principal; 2016-09-04)
DX: J44.9 Chronic obstructive pulmonary disease, unspecified (principal); I50.31 Acute diastolic (congestive) heart failure; J18.9 Pneumonia, unspecified organism; N30.00 Acute cystitis without hematuria; B96.4 Proteus (mirabilis) (morganii) as the cause of diseases classified elsewhere; E11.9 Type 2 diabetes mellitus without complications; I10 Essential (primary) hypertension; J44.0 Chronic obstructive pulmonary disease with (acute) lower respiratory infection; R41.82 Altered mental status, unspecified; E66.9 Obesity, unspecified; E78.00 Pure hypercholesterolemia, unspecified; K21.9 Gastro-esophageal reflux disease without esophagitis; M19.90 Unspecified osteoarthritis, unspecified site; E03.9 Hypothyroidism, unspecified; F41.9 Anxiety disorder, unspecified; Z79.899 Other long term (current) drug therapy; Z79.4 Long term (current) use of insulin; F17.210 Nicotine dependence, cigarettes, uncomplicated
CPT/HCPCS: 36415; 36600; 70450; 71010; 80048; 80053; 80301; 81001; 82803; 82962; 83605; 83735; 83880; 84443; 84484; 85025; 85027; 85610; 85730; 87040; 87077; 87086; 87186; 93005; 94640; 94664; 96361; 96365; 96372; 97162; 99284; 99406; G0237; J0456; J0696; J1450; J1650; J3475; J3490; J7040; J7060; J7070; J7620

== ENCOUNTER 2016-09-06 22:10 | Inpatient (IN) | payer MEDICARE ==
[2016-09-06 21:52] VITALS: BMI 31.6
[2016-09-06] MEDS ORDERED: ALBUTEROL 0.083% 3 ML NEB NEB PRN (22:31)
[2016-09-06] MEDS ORDERED: DEXTROSE 25 GM/50 ML PFS IV PRN (22:33)
[2016-09-06] MEDS ORDERED: GLUCAGON 1 MG VIAL SQ PRN (22:33)
[2016-09-06] MEDS ORDERED: GLUCOSE (ORAL GEL) 15 GM TUBE PO PRN (22:33)
[2016-09-06] MEDS ORDERED: LORAZEPAM 0.5 MG TAB PO PRN (22:33)
--- NOTE | 2016-09-06 22:57 | HISTPHYS ---
- Chief Complaint Bacteremia - History of Present Illness This is a pleasant 71-year-old female with history of chronic respiratory failure as well as recent diagnosis for urinary tract infection who was just Alexandro charge from the hospital earlier today after she was treated for confusion, altered mental status and urinary tract infection. She has been called back for readmission to the hospital tonight due to Gram-positive cocci growing in her blood cultures were drawn during her last hospital stay. Of note , she was diagnosed with Proteus mirabilis urinary tract infection and last hospital stay, discharged home on cefuroxime and fluconazole. She had a fever while in the hospital last night. She was discharged home this morning, feeling well. Her family is at the bedside this evening, tell me that she has been doing well, without any fevers. Patient currently has no complaints whatsoever. - Medical History Cardiac History: Reports: Hypertension, Congestive Heart Failure, Syncope Respiratory History: Reports: COPD, Pneumonia (REPORTED BY MD) Musculoskeletal History: Reports: Arthritis Systemic History: Reports: Hypothyroidism Psychological History: Reports: Depression, Anxiety - Surgical History Denies: Cholecystectomy - Medictions/Allergies Allergies No Known Allergies Allergy (Verified 09/04/16 16:07) Home Medications Omeprazole [Prilosec] 40 mg PO QAM 12/02/12 Fenofibrate [Lofibra] 108 mg PO BID 07/30/16 Liraglutide [Victoza 18 mg/3 ml Pen] 1.2 mg SQ DAILY@0800 07/30/16 Albuterol/Ipratropium Neb [Duoneb] 3 ml NEB TID #90 nebu 08/04/16 BuPROPion (BID formulation) [Wellbutrin-Sr] 150 mg PO BID #60 tab.sr.12h Furosemide [Lasix] 20 mg PO DAILY #30 tablet 08/04/16 Glipizide [Glucotrol] 10 mg PO BID(SABINO) #60 tablet 08/04/16 Lorazepam [Ativan] 0.5 mg PO TID PRN #30 tablet 08/04/16 Metoprolol Tartrate [Lopressor] 50 mg PO BID #60 tablet 08/04/16 Nebulizer [Erapid Nebulizer] 1 each MC TID #1 each 08/04/16 Pregabalin [Lyrica] 300 mg PO BID #60 capsule 08/04/16 Probiotic Blend [Angela Q] 1 each PO BID #30 tab 08/04/16 Simvastatin [Zocor] 20 mg PO HS #30 tablet 08/04/16 Albuterol Sulfate [Proair Hfa] 2 puff INH Q4-6H PRN 09/04/16 Diphenoxylate HCl/Atropine [Lomotil Tablet (2.5 mg/0.025 mg)] 1 - 2 tab PO QID PRN 09/04/16 Mirtazapine [Remeron] 15 mg PO HS 09/04/16 Sertraline HCl [Zoloft] 50 mg PO HS 09/04/16 Azithromycin [Zithromax] 1 tab PO DAILY #5 tab 09/06/16 Cefuroxime [Ceftin] 250 mg PO BID #10 tablet 09/06/16 Fluconazole [Diflucan] 100 mg PO DAILY(SABINO) #5 tablet 09/06/16 Insulin Detemir [Levemir] 30 units SQ HS #5 pen 09/06/16 Levothyroxine [Synthroid, Levoxyl] 50 mcg PO 0600 #30 tablet 09/06/16 Nystatin [Mycostatin] 15 gm TOP TID #1 tube 09/06/16 - Family History Reports: Hypertension (father, brother), Cancer (sister - uterine), Cardiac Disorders (father, brother) - Social History Travel Outside of [place] in the Last 3 Months?: No Smoking Status: Heavy tobacco smoker (5 or more cigarettes/day or daily pipe/ cigar) - Review of Systems Yes All systems reviewed and were negative except as marked - Physical Exam Vital Signs: Initial Vitals Temperature 98.5 F 09/06/16 22:30 Pulse Rate 70 09/06/16 22:30 Respiratory Rate 18 09/06/16 22:30 Blood Pressure 142/61 09/06/16 22:30 Pulse Oxygen Saturation 96 09/06/16 22:30 Constitutional: Alert (Awake, Fully oriented, well appearing. No apparent distress) Oriented to: Time, Person, Place - HEENT Head: Normal (normocephalic,atraumatic, trachea midline) Eye: Normal (EOMI, Sclera white) Oropharynx: Normal (moist) Nose: No Symptoms Reported (without discharge or bleeding) Respiratory: Normal - CTA (Clear to auscultation bilaterally, no wheezing,rales or rhonchi. No use of accessory muscles) Cardiovascular: Normal (RRR, no murmurs, rubs or gallops) - GI Palpation: Normal (soft, non distended and nontender) - Musculoskeletal Extremities: Normal (normal tone, no cyanosis or edema) - Integumentary Skin: Normal (no rashes or lesions) - Neurologic Cranial Nerve: Normal (CN II-XII intact) Mood Description: Normal (Fully oriented and appropiate affect) - Focused CV Perfusion Exam Vital Signs: Last Vital Signs Temp 98.5 F 09/06/16 22:30 Pulse 70 09/06/16 22:30 Resp 18 09/06/16 22:30 BP 142/61 09/06/16 22:30 Pulse Ox 96 09/06/16 22:30 - Assessment (1) Bacteremia R78.81 - BACTEREMIA Acute Blood cultures from previous admission. Patient had a fever last night. Asymptomatic. Change antibiotics to IV Rocephin. Repeat blood culture has been obtained, as well as lactate, will need to be followed up on. Vital signs are unremarkable. Labs this morning were unremarkable, recheck labs in the morning. Most likely her bacteremia is related to her urinary tract infection, and she will need 2 weeks of appropriate antibiotics. 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 Follow renal function daily. (3) CHF (congestive heart failure) I50.9 - HEART FAILURE, UNSPECIFIED Acute Qualifiers: No signs of acute decompensation. Continue present medications. (4) COPD (chronic obstructive pulmonary disease) J44.9 - CHRONIC OBSTRUCTIVE PULMONARY DISEASE, UNSPECIFIED Acute Qualifiers: She has COPD, no signs of acute exacerbation. She is on 2 L in the cannula oxygen at home, she was given new equipment as these were found to be malfunctioning during her last hospital stay. (5) Hypertension I10 - ESSENTIAL (PRIMARY) HYPERTENSION Acute (6) Proteus mirabilis infection B96.4 - PROTEUS (MIRABILIS) (MORGANII) CAUSING DIS CLASSD ELSWHR Acute Sensitive to IV Rocephin, which is been started tonight.
[2016-09-06] MEDS ORDERED: NYSTATIN CREAM 15 GM TUBE TOP SCH (23:00)
[2016-09-06] MEDS ORDERED: LIRAGLUTIDE 18 MG/3ML (0.6 MG/0.1 ML) PEN SQ SCH (23:00)
[2016-09-06] MEDS ORDERED: INSULIN DETEMIR 100 UNITS/ML PEN SQ SCH (23:00)
[2016-09-06] MEDS: ENOXAPARIN 40 MG/0.4 ML PFS SQ SCH (23:11)
[2016-09-06] MEDS: CEFTRIAXONE 1 GM in D5W 100 ML IV SCH (23:11)
[2016-09-07] MEDS: NYSTATIN CREAM 15 GM TUBE TOP SCH ×3 (05:17→21:23)
[2016-09-07] MEDS: PANTOPRAZOLE 40 MG TAB PO SCH (05:18)
[2016-09-07] MEDS: FLUCONAZOLE 100 MG TAB PO SCH (05:18)
[2016-09-07] MEDS: GLIPIZIDE 10 MG TAB PO SCH ×2 (05:18→16:17)
[2016-09-07] MEDS: LEVOTHYROXINE 50 MCG (0.05 MG) TAB PO SCH (05:18)
[2016-09-07] MEDS: REGULAR INSULIN 100 UNITS/ML - 3 ML VIAL SQ SCH ×4 (05:19→21:21)
[2016-09-07] MEDS ORDERED: LEVOTHYROXINE 25 MCG (0.025 MG) TAB PO SCH (06:00)
[2016-09-07 07:06] LABS: MPV 9.8 fL (7.4-10.4)
[2016-09-07 07:28] LABS: BLOOD UREA NITROGEN 16 MG/DL (7-17); CALCIUM 8.8 MG/DL (8.4-10.2); CALCULATED OSMOLALITY 279 MOs/Kg (270-290); CHLORIDE 102 mEq/L (98-107); GLUCOSE 264 MG/DL (70-99); SODIUM LEVEL 140 mEq/L (137-146)
[2016-09-07] MEDS: FUROSEMIDE 20 MG TAB PO SCH (08:30)
[2016-09-07] MEDS: FENOFIBRATE 48 MG TAB PO SCH ×2 (08:30→16:17)
[2016-09-07] MEDS: BuPROPion 150 MG SR TAB PO SCH ×2 (08:31→21:23)
[2016-09-07] MEDS ORDERED: PREGABALIN 300 MG PO SCH (09:00)
[2016-09-07] MEDS ORDERED: Non-Formulary Medication ITEM (Omeprazole [Prilosec] 40 MG) PO SCH (09:00)
[2016-09-07] MEDS ORDERED: FENOFIBRATE PO SCH (09:00)
[2016-09-07] MEDS: LIRAGLUTIDE 18 MG/3ML (0.6 MG/0.1 ML) PEN SQ SCH (09:05)
[2016-09-07] MEDS: PREGABALIN 100 MG CAP PO SCH ×2 (09:05→21:23)
[2016-09-07] MEDS: METOPROLOL TARTRATE 50 MG TAB PO SCH ×2 (11:58→21:22)
[2016-09-07] MEDS: PROBIOTIC BLEND TAB PO SCH ×2 (12:05→16:17)
--- NOTE | 2016-09-07 13:43 | GENMEDPROG ---
Chief Complaint: bacteremia, CHF, UTI, HTN Subjective Note: patient notified of + blood cultures, called to come back to hospital, denies increased pain or fever Notes Reviewed: Yes Events from last night noted and discussed with Clinical Staff Current Medication List: Reviewed Currently: Reports: HERRERA, Ambulating. Denies: Wheezing, SOB, Nausea and Vomiting , Abdominal Pain, Fever/Chills - Physical Examination Vital Signs and I&O: Last Vital Signs Temp 97.7 F 09/07/16 13:41 Pulse 67 09/07/16 13:41 Resp 18 09/07/16 13:41 BP 133/61 09/07/16 13:41 Pulse Ox 98 09/07/16 13:41 Oxygen Pulse Oxygen Saturation 98 O2 Device Room Air Oxygen Flow Rate Fraction of Inspired Oxygen ( FIO2) Intake & Output 09/04/16 09/05/16 09/06/16 09/07/16 23:59 23:59 23:59 23:59 Intake Total 550 Output Total 400 Balance 150 Patient's weight 81.828 kg General: Alert, Oriented x3, Cooperative, No acute distress, Well appearing, Obese HEENT: Normal, PERRLA, EOMI, Anicteric Sclera, Mucous membr. moist/pink Neck: Non-tender, Full range of motion, Normal Trachea alignment, Normal inspection, No Masses palpable, No Thyromegaly palpable. negative: JVD Lymphatics: Normal Respiratory: Normal - CTA (Clear to auscultation bilaterally, no wheezing,rales or rhonchi. No use of accessory muscles), Diminished Cardiovascular: Regular rate and rhythm, Normal S1, Normal S2, Good Pedal Pulses , PMI Not Lateralized, Chest Non Tender. negative: LE Edema GI: Normal bowel sounds, Soft, Non tender, No masses, Obese Extremities/Musculoskeletal: Normal pulses, DJD, FROM Skin: Warm,Dry and Intact, No rashes, No breakdown Neurological: Normal speech, Strength at 5/5 X4 ext, Normal tone, Cranial nerves 3-12 NL Psych/Mental Status: Appropriate, Normal Affect, Cooperative Lab/DI/Studies Reviewed: Microbiology 09/04/16 15:05 Urine - In/Out Catheter Urine Culture - Final Proteus mirabilis 09/05/16 21:15 Blood Blood Culture - Preliminary -Gram positive cocci in clusters - Assessment (1) Bacteremia Acute R78.81 - BACTEREMIA Comment/Plan: Blood cultures from previous admission are showing gram positive cocci in clusters. Patient reported a fever 09/06/16. Asymptomatic now. Change antibiotics to IV Rocephin. Repeat blood culture has been obtained, as well as lactate, will need to be followed up on. Vital signs are unremarkable. Labs this morning were unremarkable, recheck labs in the morning. She may have bacteremia or possibly just a contaminated blood culture, since this appears to be a Staph organism, not the same organism as her UTI. (2) Proteus mirabilis infection Acute B96.4 - PROTEUS (MIRABILIS) (MORGANII) CAUSING DIS CLASSD ELSWHR Comment/Plan: Proteus mirabilus in UTI/urine culture. Was discharged on PO antibiotics (Ceftin 250 mg BID x 5 days; received IV Rocephin in hospital prior to discharge.) (3) [id number]-cy-kqzraxn renal failure Active N17.9 - ACUTE KIDNEY FAILURE, UNSPECIFIED; N18.9 - CHRONIC KIDNEY DISEASE, UNSPECIFIED Comment/Plan: Patient's renal insufficiency has improved , her creatinine was stable throughout. But she does have some diabetic renal disease. Urinary microalbumin is pending. (4) Diabetes mellitus type 2 in obese Acute E11.9 - TYPE 2 DIABETES MELLITUS WITHOUT COMPLICATIONS; E66.9 - OBESITY , UNSPECIFIED Comment/Plan: Monitor CBG and use SSI, place on diabetic diet. (5) UTI (urinary tract infection) Acute N39.0 - URINARY TRACT INFECTION, SITE NOT SPECIFIED Qualifiers: Urinary tract infection type: acute cystitis Hematuria presence: without hematuria Qualified Code(s): N30.00 - Acute cystitis without hematuria Comment/Plan: Proteus mirabilus in UTI/urine culture. 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 Follow renal function daily. (7) CHF (congestive heart failure) Acute I50.9 - HEART FAILURE, UNSPECIFIED Qualifiers: Comment/Plan: No signs of acute decompensation. Continue present medications. (8) COPD (chronic obstructive pulmonary disease) Acute J44.9 - CHRONIC OBSTRUCTIVE PULMONARY DISEASE, UNSPECIFIED Qualifiers: Comment/Plan: She has COPD, no signs of acute exacerbation. She is on 2 L in the cannula oxygen at home, she was given new equipment as these were found to be malfunctioning during her last hospital stay. (9) Hypertension Acute I10 - ESSENTIAL (PRIMARY) HYPERTENSION Qualifiers: Hypertension type: essential hypertension Qualified Code(s): I10 - Essential (primary) hypertension Comment/Plan: Continue previous medications.
[2016-09-07] MEDS ORDERED: INSULIN DETEMIR 100 UNITS/ML PEN SQ SCH (21:00)
[2016-09-07] MEDS ORDERED: SIMVASTATIN 20 MG TAB PO SCH (21:00)
[2016-09-07] MEDS ORDERED: MIRTAZAPINE 15 MG TAB PO SCH (21:00)
[2016-09-07] MEDS ORDERED: SERTRALINE HCL 50 MG TAB PO SCH (21:00)
[2016-09-07] MEDS: ENOXAPARIN 40 MG/0.4 ML PFS SQ SCH (21:22)
[2016-09-07] MEDS: CEFTRIAXONE 1 GM in D5W 100 ML IV SCH (23:26)
[2016-09-08] MEDS: NYSTATIN CREAM 15 GM TUBE TOP SCH (05:18)
[2016-09-08] MEDS: FLUCONAZOLE 100 MG TAB PO SCH (05:19)
[2016-09-08] MEDS: PANTOPRAZOLE 40 MG TAB PO SCH (05:19)
[2016-09-08] MEDS: LEVOTHYROXINE 50 MCG (0.05 MG) TAB PO SCH (05:19)
[2016-09-08] MEDS: GLIPIZIDE 10 MG TAB PO SCH (05:20)
[2016-09-08] MEDS: REGULAR INSULIN 100 UNITS/ML - 3 ML VIAL SQ SCH ×2 (05:20→11:41)
[2016-09-08 06:32] VITALS: TEMP 97.7
[2016-09-08 07:16] LABS: MPV 9.8 fL (7.4-10.4)
[2016-09-08 07:50] LABS: BLOOD UREA NITROGEN 15 MG/DL (7-17); CALCULATED OSMOLALITY 277 MOs/Kg (270-290); CHLORIDE 100 mEq/L (98-107); GLUCOSE 197 MG/DL (70-99); SODIUM LEVEL 141 mEq/L (137-146)
[2016-09-08] MEDS: FENOFIBRATE 48 MG TAB PO SCH (08:12)
[2016-09-08] MEDS: LIRAGLUTIDE 18 MG/3ML (0.6 MG/0.1 ML) PEN SQ SCH (08:12)
[2016-09-08] MEDS: FUROSEMIDE 20 MG TAB PO SCH (08:12)
[2016-09-08] MEDS: BuPROPion 150 MG SR TAB PO SCH (08:13)
[2016-09-08] MEDS: METOPROLOL TARTRATE 50 MG TAB PO SCH (08:13)
[2016-09-08 08:14] VITALS: BP 122/64; PULSE 72
[2016-09-08] MEDS: PREGABALIN 100 MG CAP PO SCH (08:18)
--- NOTE | 2016-09-08 08:48 | PCM.DCS92 ---
- Final/Secondary Discharge Diagnosis (1) Bacteremia Ruled-out R78.81 - BACTEREMIA Present on Admission: Yes Comment: Blood cultures from previous admission are showing gram positive cocci in clusters. Patient reported a fever 09/06/16. Asymptomatic now. Change antibiotics to IV Rocephin. Repeat blood culture has been obtained, as well as lactate, will need to be followed up on. Vital signs are unremarkable. Final culture results showed only 1 of 2 blood culture specimens + for Staph species, (coag neg), felt to be a contaminant. Patient remained asymptomatic. Discharge home on previous medications. She may have bacteremia or possibly just a contaminated blood culture, since this appears to be a Staph organism, not the same organism as her UTI. (2) Proteus mirabilis infection Acute B96.4 - PROTEUS (MIRABILIS) (MORGANII) CAUSING DIS CLASSD [id number] Present on Admission: Yes Comment: Proteus mirabilus in UTI/urine culture. Was discharged on PO antibiotics (Ceftin 250 mg BID x 5 days; received IV Rocephin in hospital prior to discharge.) (3) Ydcpn-bj-vettjgf renal failure Active N17.9 - ACUTE KIDNEY FAILURE, UNSPECIFIED; N18.9 - CHRONIC KIDNEY DISEASE, UNSPECIFIED Present on Admission: Yes Comment: Patient's renal insufficiency has improved, her creatinine was stable throughout. But she does have some diabetic renal disease. Urinary microalbumin is 17. (4) Diabetes mellitus type 2 in obese Acute E11.9 - TYPE 2 DIABETES MELLITUS WITHOUT COMPLICATIONS; E66.9 - OBESITY , UNSPECIFIED Present on Admission: Yes Comment: Monitor CBG and use SSI, place on diabetic diet. Plan/Goal/Comment: CBG range 130-272, highest were on admission, better since on controlled diet. (5) UTI (urinary tract infection) Acute N39.0 - URINARY TRACT INFECTION, SITE NOT SPECIFIED Present on Admission: Yes acute cystitis without hematuria N30.00 - Acute cystitis without hematuria Comment: Proteus mirabilus in UTI/urine culture. Has been discharged on PO antibiotics (Ceftin 250 mg BID x 5 days; received IV Rocephin in hospital prior to discharge.) (6) Renal disorder associated with type II diabetes mellitus Chronic Present on Admission: Yes Comment: Continue present medications. Follow renal function daily. (7) CHF (congestive heart failure) Chronic I50.9 - HEART FAILURE, UNSPECIFIED Present on Admission: Yes diastolic chronic I50.32 - Chronic diastolic (congestive) heart failure Comment: No signs of acute decompensation. Continue present medications. (8) COPD (chronic obstructive pulmonary disease) Chronic J44.9 - CHRONIC OBSTRUCTIVE PULMONARY DISEASE, UNSPECIFIED Present on Admission: Yes unspecified COPD J44.9 - Chronic obstructive pulmonary disease, unspecified Comment: She has COPD, no signs of acute exacerbation. She is on 2 L in the cannula oxygen at home, she was given new equipment as these were found to be malfunctioning during her last hospital stay. (9) Hypertension Chronic I10 - ESSENTIAL (PRIMARY) HYPERTENSION Present on Admission: Yes essential hypertension I10 - Essential (primary) hypertension Comment: Continue previous medications. Discharge Disposition: Discharge w/ Home Health Discharge Condition: Stable Cognitive Discharge Status: Unimpaired Fuctional Discharge Status: Independent New Prescriptions: Levothyroxine [Synthroid, Levoxyl] 50 mcg PO 0600 #30 tablet Discharge Home Medication List Omeprazole [Prilosec] 40 mg PO QAM 12/02/12 [History Confirmed 09/06/16 Last Taken 09/06/16] Fenofibrate [Lofibra] 108 mg PO BID 07/30/16 [History Confirmed 09/06/16 Last Taken 09/06/16 08:50] Liraglutide [Victoza 18 mg/3 ml Pen] 1.2 mg SQ DAILY@0800 07/30/16 [History Confirmed 09/06/16 Last Taken 09/06/16] Albuterol/Ipratropium Neb [Duoneb] 3 ml NEB TID #90 nebu 08/04/16 [Rx Confirmed 09/06/16 Last Taken 09/06/16 07:30] BuPROPion (BID formulation) [Wellbutrin-Sr] 150 mg PO BID #60 tab.sr.12h [Rx Confirmed 09/06/16 Last Taken 09/06/16 07:50] Furosemide [Lasix] 20 mg PO DAILY #30 tablet 08/04/16 [Rx Confirmed 09/06/16 Last Taken 09/06/16 07:50] Glipizide [Glucotrol] 10 mg PO BID(SABINO) #60 tablet 08/04/16 [Rx Confirmed Last Taken 09/06/16 07:00] Lorazepam [Ativan] 0.5 mg PO TID PRN #30 tablet 08/04/16 [Rx Confirmed 09/06/16 Last Taken 09/06/16] Metoprolol Tartrate [Lopressor] 50 mg PO BID #60 tablet 08/04/16 [Rx Confirmed 09/06/16 Last Taken 09/06/16 07:50] Nebulizer [Erapid Nebulizer] 1 each MC TID #1 each 08/04/16 [Rx Confirmed Last Taken 09/06/16] Pregabalin [Lyrica] 300 mg PO BID #60 capsule 08/04/16 [Rx Confirmed 09/06/16 Last Taken 09/06/16 07:40] Probiotic Blend [Angela Q] 1 each PO BID #30 tab 08/04/16 [Rx Confirmed 09/06/16 Last Taken 09/06/16 07:40] Simvastatin [Zocor] 20 mg PO HS #30 tablet 08/04/16 [Rx Confirmed 09/06/16 Last Taken 09/06/16] Albuterol Sulfate [Proair Hfa] 2 puff INH Q4-6H PRN 09/04/16 [History Confirmed 09/06/16 Last Taken 09/06/16 06:30] Diphenoxylate HCl/Atropine [Lomotil Tablet (2.5 mg/0.025 mg)] 1 - 2 tab PO QID PRN 09/04/16 [History Confirmed 09/06/16 Last Taken 09/06/16] Mirtazapine [Remeron] 15 mg PO HS 09/04/16 [History Confirmed 09/06/16 Last Taken 09/06/16] Sertraline HCl [Zoloft] 50 mg PO HS 09/04/16 [History Confirmed 09/06/16 Last Taken 09/06/16] Azithromycin [Zithromax] 1 tab PO DAILY #5 tab 09/06/16 [Rx Confirmed 09/06/16 Last Taken 09/06/16] Cefuroxime [Ceftin] 250 mg PO BID #10 tablet 09/06/16 [Rx Confirmed 09/06/16 Last Taken 09/06/16] Fluconazole [Diflucan] 100 mg PO DAILY(SABINO) #5 tablet 09/06/16 [Rx Confirmed 10/22 Last Taken 09/06/16 00:30] Insulin Detemir [Levemir] 30 units SQ HS #5 pen 09/06/16 [Rx Confirmed 09/06/16 Last Taken 09/06/16] Nystatin [Mycostatin] 15 gm TOP TID #1 tube 09/06/16 [Rx Confirmed 09/06/16 Last Taken 09/06/16 13:00] Levothyroxine [Synthroid, Levoxyl] 50 mcg PO 0600 #30 tablet 09/08/16 [Rx Last Taken Unknown] O2 Device: Room Air Diet at Discharge: Heart Healthy, Low Salt, Diabetic, 1800 Calorie Activity: As Tolerated, No Driving Call Office For: Worsening Symptoms Discontinue use of:: Alcohol, All Types of Tobacco - DC Summary Notes Home Health Need / Snf Services:: Due to the presence of Diabetic Changes and/or risk of deterioration a skilled Assessment and observation of endocrine status is required for this patient. This assessment to include but not limited to: teaching, training of disease process and symptom management (diet, infection control), safety, S/S of hyper/ hypoglycemia, medication, medication management, and recognizing changes/ decline in status. Blood sugar monitoring signs and symptoms to report to physician information management officer. Due to the presence of Cardiac Changes and/or risk of deterioration a skilled Assessment and observation of cardiovascular status is required for this patient. This assessment could include but not limited to teaching, training of disease process and symptom management (diet, infection control, safety) and recognizing changes/decline in status. If appropriate to include education on oxygen use - safety, storage, reordering and need for a fire plan. Pulse Oximetry PRN for S/S respiratory distress. Hospital Course Note:: Discharge summary on patient named GRICELDA DE LEON admitted to [facility] on 09/06/16 by Umang Salgado MD. Date of discharge is []. Total Time: 35 min Code: 37196 (>30min.) - Physical Exam Vital Signs: Last Vital Signs Temp 97.7 F 09/08/16 06:00 Pulse 72 09/08/16 08:13 Resp 18 09/08/16 06:00 BP 122/64 09/08/16 08:13 Pulse Ox 93 09/08/16 06:00 Oxygen Pulse Oxygen Saturation 93 O2 Device Room Air Oxygen Flow Rate 2 Fraction of Inspired Oxygen ( FIO2) Constitutional: No apparent distress, Alert (Awake, Fully oriented, well appearing. No apparent distress) Oriented to: Time, Person, Place - HEENT Head: Normal (normocephalic,atraumatic, trachea midline) Eye: Normal (EOMI, Sclera white) Oropharynx: Normal (moist) Tympanic Membrane: Normal ENT EAC: Normal TMJ: Normal Nose: No Symptoms Reported (without discharge or bleeding) - Respiratory/Cardiovascular Respiratory: Normal - CTA (Clear to auscultation bilaterally, no wheezing,rales or rhonchi. No use of accessory muscles), Diminished Cardiovascular: Normal - GI Auscultation: Normal Palpation: Normal (soft, non distended and nontender) Tenderness: Non tender Edgar's Sign: Negative Rectal Exam: Deferred - Musculoskeletal Back: Normal Extremities: Normal (normal tone, no cyanosis or edema) - Integumentary Skin: Warm, Dry Lymphatics: Normal - Neurologic Memory Impaired: Normal Motor Function: Normal Cranial Nerve: Normal Cerebellar: Normal Mood Description: Normal (Fully oriented and appropiate affect) Thought: Coherent Perception: Normal
== END 2016-09-08 13:30 | disposition home health service (06) | DRG 690 ==
LOC: MPS3 22:27
PROVIDERS: ADMIT Internal Medicine; ATTEND Family Medicine
DX: N30.00 Acute cystitis without hematuria (principal); N17.9 Acute kidney failure, unspecified; E11.22 Type 2 diabetes mellitus with diabetic chronic kidney disease; I13.0 Hypertensive heart and chronic kidney disease with heart failure and stage 1 through stage 4 chronic kidney disease, or unspecified chronic kidney disease; I50.9 Heart failure, unspecified; B96.4 Proteus (mirabilis) (morganii) as the cause of diseases classified elsewhere; J44.9 Chronic obstructive pulmonary disease, unspecified; E03.9 Hypothyroidism, unspecified; Z79.82 Long term (current) use of aspirin; F17.210 Nicotine dependence, cigarettes, uncomplicated; N18.9 Chronic kidney disease, unspecified; E66.9 Obesity, unspecified; Z79.899 Other long term (current) drug therapy
CPT/HCPCS: 80048; 82962; 85027; 87040; 96372; G0237; J0696; J1650; J3490; J7060